=== PATIENT | male | born 1990 | race Caucasian/White ===

== ENCOUNTER 2025-02-19 12:55 | Outpatient (REF) | payer OTHER, SELFPAY ==
--- NOTE | 2025-02-19 | EEG_ITS ---
This is a 16 channel EEG with an EKG lead. Patient is reported awake during the tracing. Background EEG rhythm is to 10-12 hertz 5-70 microvolt posteriorly lower amplitude fast anteriorly. Photic stimulation does not produce any significant driving. Hyperventilation similarly does not produce any significant abnormality. Patient transition into drowsiness with disappearance of background rhythm reduction of amplitude. No definite sharp wave spikes or paroxysmal tendency noted. Cardiac lead does not reveal any significant abnormality. Impression: Unremarkable EEG. MTDD
--- OUTSIDE RECORDS SUMMARY | 2025-02-19 14:08 | XMS_ITS | Encounter Summary ---
Author Organization [facility] Address [address] [place] [address] Care Team Providers Care Chair Finisher Name Role Phone Darrion Taylor MD Primary Care Provider Encounter Details Date Type Department Care Team (Late Contact Info) Description 06/28/2024 Nurse Triage Adult [address] [phone] Darrion Taylor MD [address] [place] [address] Social History Tobacco Use Types Packs/Day Years Used Date Smoking Tobacco: Former Cigarettes 1 12.5 S tarted: 08/23/2012 Smokeless Tobacco: Never Alcohol Use Standard Drinks/Week Comments Yes 0 (1 standard drink = 0.6 oz pur e alcohol) Sex and Gender Information Value Date Recorded Sex Assigned at Not on file Legal Sex Male 2:01 AM EST Gender Identity Not on file Sexual Orientation Not on file documented as of this encounter Progress Notes * Silvia Long RN - 07/24/2024 1:53 PM EST Pt has not responded to triage calls, encounter closed without pt contact documented in this encounter Plan of Treatment Upcoming Encounters Date Type Department Care Team (Late Contact Info) Description 03/27/2025 10:00 AM EDT Office Visit Adult [address] [phone] Jessica Delgado PA [address] [place] [phone] documented as of this encounter Visit Diagnoses Not on filedocumented in this encounter Care Teams Chair Finisher Relationship Specialty Start Date End Date Darrion Taylor MD [address] [place] [address] PCP - General Internal Medicine 01/05/22 documented as of this encounter
== END 2025-02-19 12:56 | disposition home or self-care (01) ==
LOC: HO.NEURO 12:55
PROVIDERS: PCP Internal Medicine; Visit Provider Psychiatry & Neurology Neurology
DX: G47.411 Narcolepsy with cataplexy (principal)
CPT/HCPCS: 95819

== ENCOUNTER → 2025-02-19 12:55 | Outpatient (BNV) | payer OTHER, SELFPAY | PROVIDERS: PCP Internal Medicine; Visit Provider Psychiatry & Neurology Neurology | DX: G47.411 Narcolepsy with cataplexy (principal) | CPT/HCPCS: 95816 ==

== ENCOUNTER 2025-04-03 15:23 | Outpatient (AMB) | payer OTHER, SELFPAY ==
--- NOTE | 2025-04-03 15:31 | MHC.OFFVIS ---
Intake Visit Reasons: RESULTS Allergies Penicillins Allergy (Verified 02/05/25 15:45) Unknown HPI Comments Details: 34 yo RH man with symptoms of anxiety and depression since he was in middle school with no obvious trigger other than usual middle school stresses, with probably family h/o of same problems, was here for set of symptoms. Main or long lasting issue has been his tendency to doze off during daytime or in situations where other people might not. He could doze off sitting in the waiting room or as a passenger in a car. He said that it happened when he was tired or after eating but he did mention certain occasions where it was noticablly odd. He denied that he dozed off at dinner table or while engaged talking. This has been going on for years. He used to take Citaloprim for mood disorder, which he stopped taking around 2020. Since then, he has been having episodes of sudden loss of strength in his body or neck when he laughed or was emotionally upset. These episodes surprised him and typically lasted for a few seconds. There was no alteration of consciousness and he had not fallen from it. They have happened about once a week depending upon stimuli. He also felt an odd feeling in his upper back during these episodes. He mentioned sleep paralysis episodes that happened if he dozed off during daytime. Sometimes he had vivid dreams but he denied hallucinations. Again, he is presenting with sleep disturbances and concerns regarding narcolepsy. 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 On some nights, fragmented sleep is accompanied by significant tossing and turning. Daytime sleepiness is an issue, particularly after heavy meals, although he retains control over this with voluntary naps. Engagement in activities helps mitigate this somnolence. An EEG was previously conducted with normal results, excluding epilepsy as an underlying cause. Anticipating a sleep study, including the multiple sleep latency test, the patient aims to elucidate any issues related to narcolepsy, emphasizing daytime sleep latency and abnormal REM patterns. He notes the onset of vivid and sometimes bizarre dreams but currently awaits formal diagnosis. [facility] Medical History (Updated 04/03/25 @ 15:38 by Luther Knapp MD) Diverticulitis HLD (hyperlipidemia) Anxiety Depression Narcolepsy and cataplexy Review of Systems Const Details: - Sleep: Reports difficulty staying asleep, frequent awakenings, unrefreshing sleep, and vivid dreams. - Neurological: Reports daytime somnolence, describes symptoms consistent with narcolepsy. - Urinary: Reports nocturnal awakenings to urinate. - Psychological: Reports no daytime hallucinations or significant mood disturbances related to sleep issues. Physical Exam Neuro Other: Mental Status: Alert and oriented to person, place, and time. Normal attention. Normal spontaneous speech, fluency, and comprehension. No obvious issues with mood and memory. Affect is appropriate. Cranial Nerves: CN II: Visual espinoza full to confrontation, visual acuity intact. CN III, IV, : Pupils equal, round, reactive to light and accommodation. Extraocular movements are normal. CN V: Facial sensation is normal. CN VII: Facial movements symmetrical. CN VIII: Hearing intact to bedside conversation is normal. CN IX, X: Palate elevates symmetrically. CN XI: Shoulder shrug and head turn symmetrical. CN XII: Tongue midline without atrophy or fasciculations. Extrapyramidal: Full facial expressions and blinking. No rigidity. Movements are appropriate with no tremor or abnormality. Speech: Normal; no dysarthria or tremor. Assessment & Plan Assessment & Plan (1) Narcolepsy and cataplexy: Comment: EEG at off in February 2025: WNL Code(s): G47.411 - Narcolepsy with cataplexy Category: Medical Plan Impression: Probably narcolepsy/cataplexy Rec: Overnight polysomnogram followed by MSLT study Orders: Orders RT PSG in-lab sleep study Today G47.411 - Narcolepsy with cataplexy RT sleep testing - MSLT Today G47.411 - Narcolepsy with cataplexy Coding Level of Care Code Est Pt Level 5 (27302) Diagnoses Narcolepsy and cataplexy G47.411
--- OUTSIDE RECORDS SUMMARY | 2025-04-03 16:36 | XMS_ITS | Clinical Summary ---
Author Organization [place] [id number] [facility] Address [address] [place] [phone] Phone Care Team Providers Care Nozzle Cement Sprayer Helper Name Role Phone Darrion Taylor MD Primary Care Provider [phone] Allergies Active Allergy Reactions Criticality Noted Date Comments Penicillins High 08/23/2018 Advised by doctors to stay away from - dx childhood - unsure of reaction Medications famotidine (Pepcid) 20 mg tablet Take 1 tablet (20 mg total) by mouth 2 (two) times a day. 180 each 1 07/03/2024 07/03/20 25 Active mometasone (ELOCON) 0.1 % cream Apply to the affected area 2 times day and PRN. 05/15/2024 05/10/20 25 Active cyclobenzaprine (FLEXERIL) 10 mg tablet Take 1 tablet (10 mg total) by mouth at bedtime as needed for muscle spasms. 30 tablet 09/24/2024 Active fenofibrate (LOFIBRA) 54 mg tablet Take 1 tablet (54 mg total) by mouth 1 (one) time each day. 90 tablet 1 10/08/2024 Active Active Problems Problem Noted Date Diagnosed Date Class 1 obesity due to exces s calories with serious comorbidity and body mass index (BMI) of 32.0 to 32.9 in adult 07/11/2024 Dyshidrotic hand dermatitis 02/18/2022 Gastroesophageal reflux disease 03/06/2019 Irritable bowel syndrome with diarrhea 9 Recurrent major depressive d isorder, in full remission (CMS/[facility] V24) 03/06/2019 Hyperlipidemia 03/06/2019 Encounters Date Type Department Care Team Description 02/22/2025 11:00 AM EDT Office Visit Adult Medicine [address] [address] Jessica Delgado PA Abnormal urinary stream (Primary Dx); Lower abdominal tenderness; Screening for prostate cancer; Narcolepsy and cataplexy from Last 3 Months Immunizations Name Administration Dates Next Due Tdap Tetanus diptheria acell ular pertussis (Boostrix; Adacel) 7yo and older 09/17/2016 Surgical History Surgery Date Site/Laterality Comments OTHER SURGICAL HISTORY 2005 Left PROCEDURE: [place] OPEN TREATMENT PROXIMAL FIBULA/SHAFT FRACTURE; COMMENT: w/plate HERNIA REPAIR 2010 Left PROCEDURE: REPAIR INGUINAL HERNIA; COMMENT: w/mesh SHOULDER SURGERY 2012 Right PROCEDURE: [place] UNLISTED PROCEDURE SHOULDER; COMMENT: lap clean COLONOSCOPY PROCEDURE: HISTORICAL COLONOSCOPY Medical History Medical History Date Comments Depression 08/23/2018 DX:Depression Esophageal reflux DX:Esophageal reflux Diverticulosis DX:Diverticulosi s History of diverticulitis DX:His tory of diverticulitis Anxiety state DX:Anxiety state Family History Medical History Relation Name Comments No Known Problems Father Lung cancer Maternal Grandfather Other: Other Maternal Grandfather cancer unknown primary Diabetes Maternal Grandmother Lung cancer Mother smoker No Known Problems Paternal Grandfather Other: Other Paternal Grandmother vascula r issues No Known Problems Sister Relation Name Status Comments Father Alive Maternal Grandfather Maternal Grandmother Mother Paternal Grandfather Alive Paternal Grandmother Alive Sister Alive Social History Tobacco Use Types Packs/Day Years Used Date Smoking Tobacco: Former Cigarettes 1 12.6 S tarted: 08/23/2012 Smokeless Tobacco: Never Tobacco Cessation:Counseling Given: Not Answered Alcohol Use Standard Drinks/Week Comments Yes 0 (1 standard drink = 0.6 oz pur e alcohol) Sex and Gender Information Value Date Recorded Sex Assigned at Not on file Legal Sex Male 2:01 AM EST Gender Identity Not on file Sexual Orientation Not on file Obstetrics History Last Filed Vital Signs Vital Sign Reading Time Taken Comments Blood Pressure 119/81 02/22/2025 10:59 AM EDT Pulse 88 02/22/2025 10:59 AM EDT Temperature 36.8 C (98.2 F) 02/22/2025 10:59 AM EDT Respiratory Rate 16 02/22/2025 10:59 AM EDT Oxygen Saturation 97% 10/03/2024 3:37 PM EST Inhaled Oxygen Concentration - - Weight 110 kg (242 lb) 02/22/2025 10:59 AM EDT Height 182.9 cm (6') 02/22/2025 10:59 AM EDT Body Mass Index 32.82 02/22/2025 10:59 AM EDT Plan of Treatment Health Maintenance Due Date Last Done Comments Hepatitis B Vaccines (1 of 3 - 19+ 3-dose series) 2009 Social Influencers of Health Screening 07/11/2022 COVID-19 Vaccine (4 - 2023-2 5 season) 2024 10/28/2021, 12/21/2020, 11/30/2020 Depression Screening 08/08/2024 Influenza Vaccine (#1) 2025 DTaP,Tdap,and Td Vaccines (2 - Td or Tdap) 09/17/2026 09/17/2016 Cholesterol Screening (Lipid Panel) 10/03/2029 10/03/2024, 06/07/2023 Colorectal Cancer Screening: Colonoscopy 10/06/2034 HIB Vaccines Aged Out No longer eligi ble based on patient's age to complete this topic HIV Screening Discontinued HPV Vaccines Aged Out No longer eligi ble based on patient's age to complete this topic Hepatitis A Vaccines Aged Out No long er eligible based on patient's age to complete this topic Hepatitis C Screening Discontinued IPV Vaccines Aged Out No longer eligi ble based on patient's age to complete this topic MMR Vaccines Aged Out No longer eligi ble based on patient's age to complete this topic Meningococcal ACWY Vaccine Aged Out N o longer eligible based on patient's age to complete this topic Meningococcal B Vaccine Aged Out No l onger eligible based on patient's age to complete this topic Pneumococcal Vaccine: Pediatrics (0 to 5 Years) and At-Risk Patients (6 to 49 Years) Aged Out No longer eligible based on patient's age to complete this topic RSV Immunization Patients Under 20 months Aged Out No longer eligible based on patient's age to complete this topic Varicella Vaccines Aged Out No longer eligible based on patient's age to complete this topic Procedures Procedure Name Priority Date/Time Associated Diagnosis Comments DISLA URINE CULTURE TUBE Routine 02/22/2025 12:15 PM EDT Abnormal urinary stream Lower abdominal tenderness Screening for prostate cancer CBC WITH AUTO DIFFERENTIAL Routine 02/22/2025 11:54 AM EDT Abnormal urinary stream Lower abdominal tenderness Screening for prostate cancer URINALYSIS WITH REFLEX MICROSCOPIC AND CULTURE Routine 02/22/2025 11:54 AM EDT Abnormal urinary stream Lower abdominal tenderness Screening for prostate cancer CBC AND DIFFERENTIAL Routine 02/22/2025 11:54 AM EDT Abnormal urinary stream Lower abdominal tenderness Screening for prostate cancer PROSTATE SPECIFIC ANTIGEN SCREEN Routine 02/22/2025 11:54 AM EDT Screening for prostate cancer MICROALBUMIN CREATININE URINE RATIO Routine 02/22/2025 11:54 AM EDT Burning with urination URINALYSIS WITH REFLEX MICROSCOPIC AND CULTURE Routine 02/22/2025 11:54 AM EDT Abnormal urinary stream Lower abdominal tenderness Screening for prostate cancer LIPID PANEL WITH REFLEX TO DIRECT LDL Routine 10/03/2024 4:20 PM EST Adult general medical examination Class 1 obesity due to excess calories with serious comorbidity and body mass index (BMI) of 32.0 to 32.9 in adult Gastroesophageal reflux disease without esophagitis Mixed hyperlipidemia Anxiety and depression from Last 3 Months or Most Recently Relevant to Health Maintenance Results * Disla urine culture tube (02/22/2025 12:15 PM EDT) Extra Tube Hold for add-ons. 02/22/2025 3:01 PM EDT [facility] Comment:Auto resulted. Urine Urine specimen obtained by clean catch procedure / Unknown Non-blood Collection / Unknown 02/22/2025 12:15 PM EDT 02/22/2025 12:15 PM EDT Jessica CLEARY LAB URINE ORDERABLES Fin al Result [facility] [address] [place] [address], [place] [phone] * Prostate specific antigen screen (02/22/2025 11:54 AM EDT) [facility] PSA 0.28 0.00 - 4.00 ng/mL LAB CHEMISTRY METHOD 02/22/2025 6:17 PM EDT [facility] Blood Venous blood specimen / Unknown Venipuncture / Unknown 02/22/2025 11:54 AM EDT 02/22/2025 11:54 AM EDT Narrative [facility] - 02/22/2025 6:17 PM EDT The Siemens Advia GruupMeetaur Chemiluminescent Immunoassay is used. Results obtained with different assay methods or kits cannot be used interchangeably. Results cannot be interpreted as absolute evidence of the presence or absence of malignant disease. Jessica CLEARY LAB BLOOD ORDERABLES [facility] al Result [facility] [address] [place] [address], [place] [phone] * Urinalysis with reflex microscopic and culture (02/22/2025 11:54 AM EDT) [facility] Specific [place] Urine 1.023 1.003 - 1.030 LAB URINALYSIS - AUTOMATED METHOD 02/22/2025 2:18 PM EDT [facility] pH, Urine 6.0 5.0 - 8.0 pH LAB URINALYSIS - AUTOMATED METHOD 02/22/2025 2:18 PM EDT [facility] Leukocytes, Urine Negative Negative LAB URINALYSIS - AUTOMATED METHOD 02/22/2025 2:18 PM EDT [facility] Nitrite, Urine Negative Negative LAB URINALYSIS - AUTOMATED METHOD 02/22/2025 2:18 PM EDT [facility] Protein, Urine Negative <=Trace mg/dL LAB URINALYSIS - AUTOMATED METHOD 02/22/2025 2:18 PM EDT [facility] Glucose, Urine Negative Negative mg/dL LAB URINALYSIS - AUTOMATED METHOD 02/22/2025 2:18 PM EDT [facility] Ketones, Urine Negative Negative mg/dL LAB URINALYSIS - AUTOMATED METHOD 02/22/2025 2:18 PM EDT [facility] Urobilinogen, Urine 1.0 0.2 - 1.0 mg/dL LAB URINALYSIS - AUTOMATED METHOD 02/22/2025 2:18 PM EDT [facility] Bilirubin, Urine Negative Negative LAB URINALYSIS - AUTOMATED METHOD 02/22/2025 2:18 PM EDT [facility] Blood, Urine Negative Negative LAB URINALYSIS - AUTOMATED METHOD 02/22/2025 2:18 PM EDT [facility] Urine Urine specimen obtained by clean catch procedure / Unknown Non-blood Collection / Unknown 02/22/2025 11:54 AM EDT 02/22/2025 11:54 AM EDT Jessica CLEARY LAB URINE ORDERABLES Fin al Result [facility] [address] [place] [address], * (ABNORMAL) CBC auto differential (02/22/2025 11:54 AM EDT) WBC 9.7 4.8 - 10.8 K/mcL LAB HEMETOLOGY METHOD 02/22/2025 2:28 PM EDT [facility] RBC 5.10 4.50 - 5.50 M/mcL LAB HEMETOLOGY METHOD 02/22/2025 2:28 PM EDT [facility] Hemoglobin 15.1 13.5 - 17.5 g/dL LAB HEMETOLOGY METHOD 02/22/2025 2:28 PM EDT [facility] Hematocrit 45.6 42.0 - 54.0 % LAB HEMETOLOGY METHOD 02/22/2025 2:28 PM EDT [facility] MCV 90.1 79.0 - 98.0 FL LAB HEMETOLOGY METHOD 02/22/2025 2:28 PM EDT [facility] MCH 29.8 27.0 - 32.0 pcg LAB HEMETOLOGY METHOD 02/22/2025 2:28 PM EDT [facility] MCHC 33.1 32.0 - 37.0 g/dL LAB HEMETOLOGY METHOD 02/22/2025 2:28 PM EDT [facility] RDW 12.8 11.0 - 15.0 % LAB HEMETOLOGY METHOD 02/22/2025 2:28 PM [facility] Platelets 201 130 - 400 K/mcL LAB HEMETOLOGY METHOD 02/22/2025 2:28 PM [facility] MPV 13.3(H) 7.0 - 11.0 FL LAB HEMETOLOGY METHOD [facility]25 [facility] NRBC 0.0 <1.0 % LAB HEMETOLOGY METHOD 02/22/2025 2:28 PM [facility] NRBC Absolute 0.00 <0.10 K/mcL LAB HEMETOLOGY METHOD 02/22/2025 2:28 PM [facility] Neutrophils Relative 58.6 % LAB HEMETOLOGY METHOD 02/22/2025 2:[facility] Lymphocytes Relative 26.5 % LAB HEMETOLOGY METHOD 02/22[facility]2025 2:[facility] Monocytes Relative 9.2 % LAB HEMETOLOGY METHOD 02/22/2025 2:28 PM [facility] Eosinophils Relative 4.5 % LAB HEMETOLOGY METHOD 02/22/2025 2:28 PM [facility] Basophils Relative 0.9 % LAB HEMETOLOGY METHOD 02/22/2025 2:28 PM EDT [facility] Immature Granulocytes Relative 0.3 % LAB HEMETOLOGY METHOD 02/22/2025 2:28 PM EDT [facility] Neutrophils Absolute 5.69 1.50 - 7.00 K/mcL LAB HEMETOLOGY METHOD 02/22/2025 2:28 PM EDT [facility] Lymphocytes Absolute 2.57 1.00 - 5.00 K/mcL LAB HEMETOLOGY METHOD 02/22/2025 2:28 PM EDT [facility] Monocytes Absolute 0.89 0.20 - 1.00 K/mcL LAB HEMETOLOGY METHOD 02/22/2025 2:28 PM EDT [facility] Eosinophils Absolute 0.44 0.00 - 0.50 K/mcL LAB HEMETOLOGY METHOD 02/22/2025 2:28 PM EDT [facility] Basophils Absolute 0.09 0.00 - 0.20 K/mcL LAB HEMETOLOGY METHOD 02/22/2025 2:28 PM EDT [facility] Immature Granulocytes Absolute 0.03 0.00 - 0.03 K/mcL LAB HEMETOLOGY METHOD 02/22/2025 2:28 PM EDT [facility] Blood Venous blood specimen / Unknown Venipuncture / Unknown 02/22/2025 11:54 AM EDT 02/22/2025 11:54 AM EDT Jessica CLEARY LAB BLOOD ORDERABLES Fin al Result [facility] [address] [place] [address], * Microalbumin creatinine urine ratio (02/22/2025 11:54 AM EDT) Creatinine, Urine 199.0 mg/dL LAB CHEMISTRY METHOD 02/22/2025 4:40 PM EDT [facility] Microalb, Ur 6.7 0.0 - 29.0 mg/L LAB CHEMISTRY METHOD 02/22/2025 4:40 PM EDT [facility] Microalb/Creat Ratio 3 <30 mg/g creat LAB CHEMISTRY METHOD 02/22/2025 4:40 PM EDT [facility] Urine Urine specimen obtained by clean catch procedure / Unknown Non-blood Collection / Unknown 02/22/2025 11:54 AM EDT 02/22/2025 11:54 AM EDT us Elijah Rivas NP LAB URINE ORDERABLES Final R esult [facility] [address] [place] [address], [place] [phone] * (ABNORMAL) Lipid panel with reflex to direct LDL (10/03/2024 4:20 PM EST) Cholesterol 297(H) 0 - 200 mg/dL LAB CHEMISTRY METHOD 10/03/2024 7:19 PM EST [facility] Triglycerides 452(H) 0 - 150 mg/dL LAB CHEMISTRY METHOD 10/03/2024 7:19 PM [facility] HDL 69 >=40 mg/dL LAB CHEMISTRY METHOD 10/03/2024 7:19 PM EST [facility] LDL Calculated 138(H) 0 - 100 mg/dL LAB CHEMISTRY METHOD 10/03/2024 7:19 PM [facility] Comment:Unable to calculate when triglycerides >400 mg/dL. VLDL Cholesterol Riki 90.4 mg/dL LAB CHEMISTRY METHOD 10/03/2024 7:19 PM EST [facility] Comment:Unable to calculate when triglycerides >400 mg/dL. Non HDL Chol. (LDL+VLDL) 228(H) <145 mg/dL LAB CHEMISTRY METHOD 10/03/2024 7:19 PM EST [facility] Comment:Unable to calculate when triglycerides >400 mg/dL. Chol/HDL Ratio 4.3 0.0 - 4.4 LAB CHEMISTRY METHOD 10/03/2024 7:19 PM EST [facility] Blood Venous blood specimen / Unknown Venipuncture / Unknown 10/03/2024 4:20 PM EST 10/03/2024 4:20 PM EST Jessica CLEARY LAB BLOOD ORDERABLES Fin al Result [facility] [address] [place] [address], from Last 3 Months or Most Recently Relevant to Health Maintenance Insurance [facility] Care Teams Nozzle Cement Sprayer Helper Relationship Specialty Start Date End Date Darrion Taylor MD [address] [place] [address] PCP - General Internal Medicine 01/05/22
--- OUTSIDE RECORDS SUMMARY | 2025-04-03 16:36 | XMS_ITS | Encounter Summary ---
Author Organization [facility] Address [address] [place] [address] Phone Care Team Providers Care Assistant Housekeeping Manager Name Role Phone Darrion Taylor MD Primary Care Provider Encounter Details Date Type Department Care Team (Late st Contact Info) Description 01/27/2023 Procedure Pass [facility], Ct Scan - [address] [address] Social History Tobacco Use Types Packs/Day Years Used Date Smoking Tobacco: Every Day Cigarettes Smokeless Tobacco: Never Alcohol Use Standard Drinks/Week Comments Yes 0 (1 standard drink = 0.6 oz pur e alcohol) Occassionally Education Answer Date Recorded Are you interested in more education? Not on ragini e 12/04/2022 Are you concerned about learning? Not on file 12/04/2022 No 12/04/2022 No 12/04/2022 Digital Access Answer Date Recorded No 01/02/2023 No 01/02/2023 Reliable internet access at home? Not on file 01/02/2023 Device with a working camera? Not on file Intimate Partner Violence Answer Date R ecorded Are you denied basic needs s uch as food, clothing, or medical care? No 01/27/2023 In the past 12 months have y ou been in a relationship with a person who hurts, threatens, or tries to control you? No 01/27/2023 Are you denied basic needs s uch as food, clothing, or medical care? No 01/27/2023 In the past 12 months have y ou been in a relationship with a person who hurts, threatens, or tries to control you? No 01/27/2023 Sex and Gender Information Value Date Recorded Sex Assigned at Male 01/27/2023 12:38 PM EDT Legal Sex Male 6:47 PM EDT Gender Identity Male 01/27/2023 12:38 PM EDT Sexual Orientation Not on file documented as of this encounter Plan of Treatment Not on file documented as of this encounter Visit Diagnoses Not on filedocumented in this encounter Care Teams Assistant Housekeeping Manager Relationship Specialty Start Date End Date Darrion Taylor MD PCP - General Internal Medicine 01/27/23 documented as of this encounter Additional Source Comments The information contained in this document represents components of the legal health record. It is not the complete legal health record.[facility]
--- OUTSIDE RECORDS SUMMARY | 2025-04-03 16:36 | XMS_ITS | Clinical Summary ---
Author Organization [facility] Address [address] [place], [place] [id number] Phone Care Team Providers Care Team Psychologist Name Role Phone Darrion Taylor MD Primary Care Provider Allergies Active Allergy Reactions Criticality Noted Date Comments Penicillins High 08/23/2018 Advised by doctors to stay away from - dx childhood - unsure of reaction Medications famotidine (PEPCID) 20 MG tablet Take 1 tablet by mouth 2 (two) times a day. 3 Active mometasone (ELOCON) 0.1 % cream Apply to the affected area 2 times day and PRN. 4 05/10/20 25 Active hydrocortisone acetate (ANUSOL-HC) [address] 25 mg rectally. 4 Active cyclobenzaprine (FLEXERIL) 10 MG tablet Take 5-10 mg by mouth. 4 Active nystatin (NYSTOP) powder Apply topically daily. Place in sneakers 60 g 4 Active clotrimazole-bet amethasone (LOTRISONE) cream Apply topically 2 (two) times a day. 30 g 4 Active Active Problems Problem Noted Date Diagnosed Date Tobacco abuse 03/06/2019 Immunizations Immunization Administration Dates Next Due COVID-19 (Pre-05/30) Pfizer Vaccine, mRNA, breanna-sucrose, PF 10/28/2021 Tdap 09/17/2016 Social History Tobacco Use Types Packs/Day Years Used Date Smoking Tobacco: Every Day Cigarettes Smokeless Tobacco: Never Tobacco Cessation:Ready to Q uit: Not Asked; Counseling Given: Not Answered Alcohol Use Standard Drinks/Week [...] PM EDT Sexual Orientation Not on file Last Filed Vital Signs Vital Sign Reading Time Taken Comments Blood Pressure 142/83 06/28/2024 1:01 PM EST Pulse 63 06/28/2024 1:01 PM EST Temperature 36.7 C (98 F) 06/28/2024 1:01 PM EST Respiratory Rate 17 06/28/2024 1:01 PM EST Oxygen Saturation 96% 06/28/2024 1:01 PM EST Inhaled Oxygen Concentration - - Weight 111.1 kg (245 lb) 01/27/2023 12:34 PM EDT Height 182.9 cm (6') 01/27/2023 12:34 PM EDT Body Mass Index 33.23 01/27/2023 12:34 PM EDT Plan of Treatment Health Maintenance Due Date Last Done Comments DEPRESSION SCREENING 2002 SMOKING Hx and SMOKELESS TOBACCO SCREENING 2003 HEPATITIS C SCREENING 2008 HIV ONE-TIME SCREENING (18-6 5 YEARS) 2008 PNEUMOCOCCAL VACCINES (0-49 years) (1 of 2 - PCV) 2009 COVID-19 VACCINE ( - 2023-2 5 season) 2024 10/28/2021, 12/21/2020, 11/30/2020 INFLUENZA VACCINE (#1) 2025 Adult Td,Tdap Booster 09/17/2026 09/17/2016 HEPATITIS A VACCINES Aged Out No long er eligible based on patient's age to complete this topic HIB VACCINES Aged Out No longer eligi ble based on patient's age to complete this topic MENINGOCOCCAL VACCINES (ACWY) Aged Out No longer eligible based on patient's age to complete this topic MENINGOCOCCAL VACCINES (B) Aged Out N o longer eligible based on patient's age to complete this topic Medical Devices Not on file Insurance [email or web address] O [facility] E[facility] E[facility] EPO [address] [place], [place] [address]O POS EPO O POS EPO [address] [place], [place] [address] POS EPO [address] [place], [place] [address]O POS EPO Care Teams Team Psychologist Relationship Specialty Start Date End Date Darrion Taylor MD PCP - General Internal Medicine 01/27/23 Additional Source Comments The information contained in this document represents components of the legal health record. It is not the complete legal health record.[facility]
--- OUTSIDE RECORDS SUMMARY | 2025-04-03 16:36 | XMS_ITS | Encounter Summary ---
Author Organization [facility] Address [address] [place] [address] Care Team Providers Care Disc Inspector Name Role Phone Darrion Taylor MD Primary Care Provider [phone] Encounter Details Date Type Department Care Team (Late st Contact Info) Description 06/28/2024 Nurse Triage Adult Medicine [address] [address] Darrion Taylor MD [address] [place] [id number] Social History Tobacco Use Types Packs/Day Years Used Date Smoking Tobacco: Former Cigarettes 1 12.6 S tarted: 08/23/2012 Smokeless Tobacco: Never Alcohol [...] documented in this encounter Plan of Treatment Not on file documented as of this encounter Visit Diagnoses Not on filedocumented in this encounter Care Teams Disc Inspector Relationship Specialty Start Date End Date Darrion Taylor MD [address] [place] [address] PCP - General Internal Medicine 01/05/22 documented as of this encounter
== END 2025-04-03 15:55 | disposition home or self-care (01) ==
LOC: HO.HSM 15:24
PROVIDERS: PCP Internal Medicine; Visit Provider Psychiatry & Neurology Neurology
DX: G47.411 Narcolepsy with cataplexy (principal)
CPT/HCPCS: 99214